=== PATIENT | female | born 1990 | race Hispanic/Latino ===

== ENCOUNTER 2017-06-07 16:31 | Emergency (ER) | payer OTHER ==
[~2017-06-07] VITALS: Ht 162.6 cm; Wt 101.2 kg
[~2017-06-07 16:31] MED LIST: DOXYCYCLINE HY100 MG PO; LEXAPRO20 MG PO; Macrobid PO; PEPCID20 MG PO; PREDNISONE20 MG PO; VICODIN,LORT1 TABLET PO; [UNRECOGNIZED DRUG - REMARK]
[2017-06-07 17:17] LABS: HEMATOCRIT 37.2 % (36.0-46.0); MCH 28.5 PG (29.0-34.0); MCHC 33.1 G/DL (30.0-36.0); MCV 86.3 FL (83-99); MEAN PLAT.VOLUME 8.7 uM^3 (9.5-12.4); PLATELET COUNT 331 K/uL (156-360); RBC DIS.WIDTH-CV 12.8 % (11.8-14.6); RBC DIS.WIDTH-SD 39.9 % (39-53); RED BLOOD COUNT 4.31 M/uL (3.80-5.20); WHITE BLOOD COUNT 12.2 K/uL (4.1-10.2)
[2017-06-07 17:26] LABS: CHLORIDE 110 mEq/L (99-109); SODIUM 139 mEq/L (136-147)
[2017-06-07 17:28] LABS: ADD MIUA? YES; BILIRUBIN NEGATIVE; BLOOD MODERATE; COLOR YELLOW ((YELLOW)); GLUCOSE (STRIP) NEGATIVE; KETONES NEGATIVE; LEUKOCYTES MODERATE; NITRITE NEGATIVE; PROTEIN (STRIP) NEGATIVE; SPECIFIC GRAVITY 1.019 (1.000-1.030); UROBILINOGEN 0.2 MG/DL (0.2-1.0)
[2017-06-07 17:28] LABS: GLUCOSE 92 mg/dL (70-99)
[2017-06-07 17:29] LABS: ANION GAP 6 MEQ/L (2-14)
[2017-06-07 17:30] LABS: TOTAL BILIRUBIN 0.3 mg/dL (0.0-1.0)
[2017-06-07 17:31] LABS: ALKALINE PHOSPHATASE 63 IU/L (3-129)
[2017-06-07 17:32] LABS: GFR ESTIMATE (CALCULATED) > 59 mL/min/
[2017-06-07 17:33] LABS: UREA NITROGEN (BUN) 12 mg/dL (9-23)
[2017-06-07 17:39] LABS: BACTERIA RARE /HPF; EPITHELIAL CELLS 1+ /HPF; MUCUS NONE SEEN /LPF
[2017-06-07 17:41] LABS: QUANTITATIVE HCG < 4.0 MIU/ML
[2017-06-07] MEDS ORDERED: BENTYL10 MG PO (20:02)
[2017-06-07 20:04] VITALS: BP 112/61
== END 2017-06-07 20:05 | disposition home or self-care (01) ==
LOC: EME 16:31
PROVIDERS: Nurse Practitioner Family
DX: R10.2 Pelvic and perineal pain (principal); R93.8 Abnormal findings on diagnostic imaging of other specified body structures; M54.5 Low back pain; M79.604 Pain in right leg; M79.605 Pain in left leg; Z90.49 Acquired absence of other specified parts of digestive tract
CPT/HCPCS: 76856; 80053; 81003; 84702; 85027; 99281; 99284